=== PATIENT | female | born 1990 | race Caucasian/White ===

== ENCOUNTER 2019-06-22 10:00 | Emergency (ER) | payer OTHER ==
[~2019-06-22] VITALS: Ht 157.5 cm; Wt 51.1 kg
[2019-06-22] MEDS ORDERED: HYDROmorphone 1 MG/ML, 1ML INJ IVPush PRN (10:30)
[2019-06-22] MEDS ORDERED: SODIUM CHLORIDE FLUSH 10ML SYR IVF ONE (10:30)
[2019-06-22] MEDS ORDERED: ONDANSETRON 2MG/ML, 2ML IVPush ONE (10:30)
[2019-06-22] MEDS ORDERED: bupropion PO (10:34)
--- NOTE | 2019-06-22 10:36 | NUR ---
LATE NOTE ENTRY DUE TO PT CARE. Pt presents to ED from urgent care with c/o RLQ intermittent abdominal pain of 1/10 at this time. Pt sent to for US to r/o appendicitis. Pt states, "I have an IUD and do not normally have a period, but I just finished my period and it lasted for about two weeks." Pt states, "I recently had a pap smear and they told me I had 'angry cells' but they didn't need to scrape anything out." Pt denies diagnosis of endometriosis. Pt states, "I threw up from pain but I am not nauseated." No vomitting observed at this time. NADN. Pt resting on [employer] connected to NIBP cuff and continous pulse ox monitor. Call light within reach and pt provided warm blanket for comfort measures. Pt transported to US on gurney at this time. NADN. Holding medication per EMAR at this time per ED MD verbal order due to reported 1/10 pain by pt at this time.
[2019-06-22 10:45] LABS: BASOPHILS # (AUTO) 0.03 x10^3/uL (0-0.1); BASOPHILS % (AUTO) 0 % (0-1); EOSINOPHILS # (AUTO) 0.01 x10^3/uL (0-0.4); EOSINOPHILS % (AUTO) 0 % (1-7); LYMPHOCYTES # (AUTO) 1.27 x10^3/uL (1-3.4); LYMPHOCYTES % (AUTO) 12 % (22-44); MD NO; MEAN CORPUSCULAR HEMOGLOBIN 30.1 pg (27.0-34.8); MEAN CORPUSCULAR HGB CONC 33.2 g/dL (32.4-35.8); MEAN CORPUSCULAR VOLUME 90.6 fL (80-100); MEAN PLATELET VOLUME 7.9 fL (7.4-10.4); MONOCYTES # (AUTO) 0.26 x10^3/uL (0.2-0.8); MONOCYTES % (AUTO) 3 % (2-9); NEUTROPHILS # (AUTO) 8.66 x10^3/uL (1.8-6.8); NEUTROPHILS % (AUTO) 85 % (42-75); PLATELET COUNT 258 x10^3/uL (130-400); RED BLOOD COUNT 4.56 x10^6/uL (3.82-5.3); RED CELL DISTRIBUTION WIDTH 12.1 % (9.6-15.2)
[2019-06-22 10:55] LABS: ALANINE AMINOTRANSFERASE 33 U/L (12-78); ALBUMIN 4.4 g/dL (3.4-5.0); ANION GAP 9 mmol/L (5-15); CALCIUM 8.9 mg/dL (8.5-10.1); CHLORIDE 109 mmol/L (98-107)
[2019-06-22 11:00] LABS: ALKALINE PHOSPHATASE 80 U/L (45-117); BILIRUBIN,TOTAL 0.4 mg/dL (0.2-1.0); CREATININE 0.73 mg/dL (0.55-1.02); TOTAL PROTEIN 7.8 g/dL (6.4-8.2)
[2019-06-22 11:46] VITALS: BP 103/71
--- NOTE | 2019-06-22 11:48 | NUR ---
PIV established. Pt declines medications at this time per EMAR. Pt states, "08/02" RLQ pain. UA sent to lab. EULALIA.
[2019-06-22 12:14] LABS: CULTURE INDICATED? YES; MICROSCOPIC INDICATED
--- NOTE | 2019-06-22 12:19 | NUR ---
Pt returned on gurney from CT. NADN. No needs expressed.
--- NOTE | 2019-06-22 12:40 | NUR ---
RECEIVED REPORT FROM PATRICIA PT UPRIGHT ON GURNEY AWAKE & COMFORTABLE, RESPONDS APPROP TO STAFF, NAD, NO NEEDS AT THIS TIME, SO AT BS, CALL LIGHT WITHIN REACH.
[2019-06-22] MEDS ORDERED: OMNIPAQUE 350 MG/ML, 100ML BOTTLE ONE (13:19)
--- NOTE | 2019-06-22 13:53 | NUR ---
Patient given discharge instructions and Rx, they have confirmed that they understand the instructions. Patient ambulatory with steady gait.
== END 2019-06-22 13:53 | disposition home or self-care (01) ==
LOC: ED 10:35
DX: R10.84 Generalized abdominal pain (principal); R11.10 Vomiting, unspecified
CPT/HCPCS: 36415; 74177; 76830; 80053; 81001; 84703; 85025; 87086; 99284; Q9967